=== PATIENT | male | born 1955 | race Caucasian/White ===

== ENCOUNTER 2018-06-28 05:41 | Inpatient (IN) | payer MEDICARE, OTHER ==
[~2018-06-28] VITALS: Ht 182.9 cm; Wt 92.1 kg
[~2018-06-28 05:41] MED LIST: CHLO25A PO; HALO2 PO; LISI5 PO; Prinivil10 MG PO; RISP2 PO; Toprol Xl25 MG PO; Trihexyphenidyl2 MG PO; Ventolin/Prove6.7 GM INH
[2018-06-30] MEDS ORDERED: Percocet 5-3251 EACH PO (11:22)
== END 2018-06-30 12:37 | disposition home or self-care (01) | DRG 352 ==
LOC: ORSCMMR 05:41 → ORD 07:30 → SURS 10:21 → ORSCMMR 10:22 → SURS 10:22
PROVIDERS: Surgery
PROC: 0YU50JZ Supplement Right Inguinal Region with Synthetic Substitute, Open Approach (ICD-10-PCS; principal; 2018-06-28 07:30)
DX: K40.90 Unilateral inguinal hernia, without obstruction or gangrene, not specified as recurrent (principal); F17.210 Nicotine dependence, cigarettes, uncomplicated; F32.9 Major depressive disorder, single episode, unspecified; J44.9 Chronic obstructive pulmonary disease, unspecified; E11.9 Type 2 diabetes mellitus without complications; Z79.4 Long term (current) use of insulin; F20.9 Schizophrenia, unspecified; E66.9 Obesity, unspecified; Z68.31 Body mass index [BMI] 31.0-31.9, adult; E55.9 Vitamin D deficiency, unspecified
CPT/HCPCS: C1781; J0330; J0694; J1100; J1650; J1885; J2001; J2250; J2370; J2405; J2710; J3010; J7120

== ENCOUNTER 2018-11-02 06:57 | Day surgery (SDC) | payer MEDICARE, OTHER ==
[~2018-11-02] VITALS: Ht 182.9 cm; Wt 86.6 kg
[~2018-11-02 06:57] MED LIST changes: +ALBU90OI INH; +Metformin HCl500 MG; +Percocet 5-3251 EACH PO; +Risperdal50 MG/2 ML IM
[2018-11-03] MEDS ORDERED: HYDR1TAB94 PO (14:45)
== END 2018-11-03 15:19 | disposition home or self-care (01) ==
LOC: ORSCMMR 06:57 → ORD 08:30 → SURS 15:10 → ORSCMMR 11-03 15:19
PROVIDERS: Surgery
PROC: 8E0W4CZ Robotic Assisted Procedure of Trunk Region, Percutaneous Endoscopic Approach (ICD-10-PCS; principal; 2018-11-02 08:30)
PROC: 0YUA4JZ Supplement Bilateral Inguinal Region with Synthetic Substitute, Percutaneous Endoscopic Approach (ICD-10-PCS; principal; 2018-11-02 08:30)
DX: K40.21 Bilateral inguinal hernia, without obstruction or gangrene, recurrent (principal); Z23 Encounter for immunization; E11.9 Type 2 diabetes mellitus without complications; F17.210 Nicotine dependence, cigarettes, uncomplicated; J45.909 Unspecified asthma, uncomplicated; Z79.899 Other long term (current) drug therapy
CPT/HCPCS: 49651; S2900; 82947; 90686; C1781; G0008; J0690; J1100; J2250; J2405; J2710; J3010; J7120

== ENCOUNTER 2019-07-28 17:14 | Observation (INO) | payer MEDICARE, OTHER ==
[~2019-07-28] VITALS: Ht 182.9 cm; Wt 89.6 kg
[~2019-07-28 17:14] MED LIST changes: +HYDR1TAB94 PO
[2019-07-28 19:44] LABS: BASOPHILS ABSOLUTE AUTO 0.06 K/mm3 (0.00-0.23); BASOPHILS PERCENT AUTO 0 % (0-2); EOSINOPHILS PERCENT AUTO 0 % (0-6); Hematocrit 42.6 % (37.0-53.0); Hemoglobin 13.9 g/dL (13.5-17.5); IMMATURE GRAN ABSOLUTE AUTO 0.06 K/mm3 (0.00-0.10); IMMATURE GRAN PERCENT AUTO 0 % (0-1); LYMPHOCYTES ABSOLUTE AUTO 0.83 K/mm3 (0.84-5.20); LYMPHOCYTES PERCENT AUTO 5 % (21-46); MONOCYTES ABSOLUTE AUTO 0.77 K/mm3 (0.16-1.47); MONOCYTES PERCENT AUTO 5 % (4-13); Mean Corpuscular HGB 32.7 pg (26.0-34.0); Mean Corpuscular HGB Conc 32.6 g/dL (31.5-36.5); Mean Corpuscular Volume 100 fL (80-100); Mean Platelet Volume 10.2 fL (9.1-12.4); NEUTROPHILS ABSOLUTE AUTO 14.06 K/mm3 (1.96-9.15); NEUTROPHILS PERCENT AUTO 89 % (41-73); Platelet Count 184 K/mm3 (150-400); RDW Coefficient Variation 14.1 % (11.7-14.2); RDW Standard Deviation 52.1 fL (35.1-46.3); Red Blood Cell Count 4.25 M/mm3 (4.30-5.90); White Blood Cell Count 15.78 K/mm3 (4.00-11.30)
[2019-07-28 20:01] LABS: International Normalized Ratio 0.96; Prothrombin Time Results 10.2 Sec (9.7-11.5)
[2019-07-28 20:04] LABS: Salicylate 1.9 mg/dL (2.8-20.0)
[2019-07-28 20:06] LABS: Acetaminophen, Random <2.0 ug/mL (10.0-30.0)
[2019-07-28 20:19] LABS: Alanine Aminotransfer (ALT/SGP 18 U/L (12-78); Albumin, Blood 3.7 g/dL (3.4-5.0); Albumin/Globulin Ratio 0.8 (0.8-1.8); Alk Phos 80 U/L (50-136); Anion Gap 10 mmol/L (6-16); Aspartate Aminotrans (AST/SGOT 16 U/L (12-37); Bilirubin, Total 0.7 mg/dL (0.1-1.0); Blood Urea Nitrogen 8 mg/dL (8-24); CO2, Blood 23 mmol/L (21-32); Calcium, Blood 8.2 mg/dL (8.5-10.1); Chloride, Blood 108 mmol/L (98-108); Creatinine, Blood 0.89 mg/dL (0.60-1.20); Ethanol (Alcohol), Blood, Med 32 mg/dL; Globulin, Blood 4.8 g/dL (2.2-4.0); Glomerular Filtration Rate >60 (60-); Glucose, Blood 107 mg/dL (70-99); Potassium, Blood 3.8 mmol/L (3.5-5.5); Sodium, Blood 141 mmol/L (136-145); Total Protein, Blood 8.5 g/dL (6.4-8.2)
[2019-07-28 20:29] LABS: CPK Creatine Kinase 135 U/L (39-308)
[2019-07-28 20:32] LABS: Creatine Kinase MB <1.0 ng/mL (0.0-3.6); Creatine Kinase MB Index Unable to Calculate (0.0-4.0)
[2019-07-28 21:26] LABS: Source, Urine Clean Catch
[2019-07-28 21:30] LABS: Bilirubin, Urine Neg (Neg); Blood, Urine Neg (Neg); Glucose Qualitative, Urine Neg (Neg); Ketones, Urine 1+ (Neg); Leukocyte Esterase, Urine Neg (Neg); Nitrite, Urine Neg (Neg); Protein, Urine Neg (Neg); Specific Gravity, Urine 1.025 (1.003-1.022); Urobilinogen, Urine NORM (Normal)
[2019-07-28 21:34] LABS: Appearance, Urine Clear (Clear); Color, Urine Yellow (P-Yellow)
[2019-07-28 21:45] LABS: U Amphetamine Screen Not Detected; U Barbituate Screen Not Detected; U Benzodiazapine Screen Not Detected; U Buprenorphine Screen Not Detected; U Cannabinoids Screen DETECTED; U Cocaine Screen Not Detected; U Methadone Screen Not Detected; U Methamphetamine Screen Not Detected; U Opiates Screen Not Detected; U Oxycodone Screen Not Detected; U Phencyclidine Screen Not Detected; U Propoxyphene Screen Not Detected
[2019-07-28] MEDS ORDERED: Risperdal50 MG/2 ML SC (22:26)
[2019-07-28] MEDS ORDERED: Trihexyphenidyl2 MG PO (22:44)
[2019-07-29] MEDS ORDERED: HALO2 PO (03:13)
[2019-07-29] MEDS ORDERED: ALBU90OI INH (03:15)
--- NOTE | 2019-07-29 04:33 | NUR ---
CONSULT: ORTHO CONSULT CALLED TO DR DONALD FOR THE AM.
--- NOTE | 2019-07-29 04:34 | NUR ---
PT HAS BEEN STABLE SINCE ARRIVAL TO FLOOR. HAS SLEPT T/O THIS SHIFT. PT IS SLIGHTLY HYPERTENSIVE, STATES HE TOOK HIS MEDS YESTEDAY PRIOR TO ADMIT. HOME MEDS SCHEDULED FOR AM. PT HAS NOT VOIDED THIS SHIFT. BED ALARM ON FOR SAFETY PT CAME IN AFTER DRINKING ALCOHOL. NPO FOR POSSIBLE SURGERY. SURGICAL PKT ON CHART. ORTHO CONSULT CALLED. CALL LIGHT IN REACH.
--- NOTE | 2019-07-29 13:00 | NUR ---
PT TAKEN TO DAYS SURGERY.
--- NOTE | 2019-07-29 14:12 | NUR ---
History, Chart, Medications and Allergies reviewed before start of procedure. SPOKE TO DR TRAN REGARDING LOW TONE EXP WHEEZE T/O. NO NEW ORDERS. Patient confirms NPO status and agrees with scheduled surgery. MENTIONED FALSE EYE ON LEFT SIDE TO OR STAFF. PT CALM AND COOPERATIVE WITH CARE.
--- NOTE | 2019-07-29 17:54 | NUR ---
POST OP ARRIVED FROM PACU VIA GURNEY, PT TRANSFERRED TO BED, DROWSY BUT AWAKENS EASILY, DENIES ANY PAIN, DIAPHORETIC, COARSE AND WET LUNG SOUNDS ON UPPER LOBES, PT ENCOURAGED TO COUGH AND DEEP BREATHE AND WAS ABLE TO COUGH UP A LARGE AMOUND TO THICK SPUTUM, PT ENCOURAGED TO COUGH AND DEEP BREATHE FREQUENTLY.
--- NOTE | 2019-07-29 18:49 | NUR ---
PT MORE AWAKE, EATING DINNER, DENIES ANY PAIN, DSG C/D/I, NO ACUTE CHANGES THIS SHIFT.
[2019-07-30 04:56] LABS: BASOPHILS ABSOLUTE AUTO 0.02 K/mm3 (0.00-0.23); BASOPHILS PERCENT AUTO 0 % (0-2); EOSINOPHILS PERCENT AUTO 0 % (0-6); Hematocrit 34.1 % (37.0-53.0); Hemoglobin 11.1 g/dL (13.5-17.5); IMMATURE GRAN ABSOLUTE AUTO 0.06 K/mm3 (0.00-0.10); IMMATURE GRAN PERCENT AUTO 0 % (0-1); LYMPHOCYTES ABSOLUTE AUTO 1.07 K/mm3 (0.84-5.20); LYMPHOCYTES PERCENT AUTO 7 % (21-46); MONOCYTES ABSOLUTE AUTO 1.11 K/mm3 (0.16-1.47); MONOCYTES PERCENT AUTO 7 % (4-13); Mean Corpuscular HGB 31.7 pg (26.0-34.0); Mean Corpuscular HGB Conc 32.6 g/dL (31.5-36.5); Mean Platelet Volume 10.3 fL (9.1-12.4); NEUTROPHILS ABSOLUTE AUTO 13.38 K/mm3 (1.96-9.15); NEUTROPHILS PERCENT AUTO 86 % (41-73); Platelet Count 151 K/mm3 (150-400); RDW Coefficient Variation 13.9 % (11.7-14.2); RDW Standard Deviation 49.5 fL (35.1-46.3); White Blood Cell Count 15.64 K/mm3 (4.00-11.30)
[2019-07-30 04:57] LABS: Mean Corpuscular Volume 97 fL (80-100)
[2019-07-30 05:15] LABS: Albumin, Blood 2.9 g/dL (3.4-5.0); Anion Gap 6 mmol/L (6-16); Blood Urea Nitrogen 13 mg/dL (8-24); CO2, Blood 27 mmol/L (21-32); Chloride, Blood 107 mmol/L (98-108); Creatinine, Blood 0.81 mg/dL (0.60-1.20); Glomerular Filtration Rate >60 (60-); Glucose, Blood 118 mg/dL (70-99); Phosphorus, Blood 2.5 mg/dL (2.5-4.9); Potassium, Blood 4.2 mmol/L (3.5-5.5); Sodium, Blood 140 mmol/L (136-145)
--- NOTE | 2019-07-30 05:35 | NUR ---
SHIFT SUMMARY: PT IS ALERT AND ORIENTED WITH SOME DEGREE OF CONFUSION. PT IS CALM AND COOPERATIVE WITH CARE. PT USING HIS CALL LIGHT PART OF THE TIME SET OF ALARMS OTHER TIMES. PT IS A STANDBY ASSIST UP TO THE BATHROOM. PT SLEPT MUCH OF THE NIGHT WHEN NOT DISTURBED. NON-WEIGHT BEARING ON L. ARM ORDERED. PT DENIES PAIN, NAUSEA, VOMITING, AND SOB. NO ACUTE CHANGES OR COMPLICATIONS THIS SHIFT. BED IN LOW POSITION, CALL LIGHT WITHIN REACH. WILL REPORT TO DAY NURSE.
--- NOTE | 2019-07-30 13:51 | NUR ---
DR DONALD AT BEDSIDE, NOTIFIED OF REDNESS UNDER SURGICAL SITE. PER DR DONALD, PT CLEARED TO GO HOME, WILL SEE BACK IN TWO WEEKS AND DRESSING CHANGE IN [address] MANZO.
--- NOTE | 2019-07-30 16:47 | NUR ---
SHIFT SUMMARY PT A&Ox3, CONFUSED AT TIMES. THIS AFTERNOON PT WAS YELLING OUT "GET OUT OF HERE", THIS RN TO ROOM, NO ONE WAS IN ROOM AND WHEN ASKED PT STATES HIS FRIEND IS IN THE SHADOWS, NOTIFIED DR MANZO, NEW ORDERS FOR HALDOL, ADMINISTERED PER EMAR. ON REASSESSMENT PT STATES HIS FRIEND SEEMS TO HAVE GONE HOME. PT DENIES PAIN, SOB AND NASUEA. REDNESS NOTED ON LEFT UPPER ARM, NOTIFIED DR CRAWFORD AND DR DONALD, NO NEW ORDERS. PT NON COMPLIANT WITH WEIGHT BEARING STATUS AND EDUCATED PT TO NO USE THAT ARE AND TO USE CALL LIGHT, CONTINUES TO SET OFF ALARMS. PT RECEIVIED IV ANTIBIOTIC THIS AM. VSS. NO OTHER ACUTE CHANGES NOTED DURING SHIFT. WILL CONTINUE TO MONITOR.
[2019-07-31 04:05] LABS: BASOPHILS ABSOLUTE AUTO 0.06 K/mm3 (0.00-0.23); BASOPHILS PERCENT AUTO 1 % (0-2); EOSINOPHILS ABSOLUTE AUTO 0.02 K/mm3 (0.00-0.68); EOSINOPHILS PERCENT AUTO 0 % (0-6); Hemoglobin 10.4 g/dL (13.5-17.5); IMMATURE GRAN ABSOLUTE AUTO 0.04 K/mm3 (0.00-0.10); IMMATURE GRAN PERCENT AUTO 0 % (0-1); LYMPHOCYTES ABSOLUTE AUTO 3.25 K/mm3 (0.84-5.20); LYMPHOCYTES PERCENT AUTO 27 % (21-46); MONOCYTES ABSOLUTE AUTO 1.06 K/mm3 (0.16-1.47); MONOCYTES PERCENT AUTO 9 % (4-13); Mean Corpuscular HGB 32.7 pg (26.0-34.0); Mean Corpuscular HGB Conc 32.5 g/dL (31.5-36.5); Mean Platelet Volume 10.4 fL (9.1-12.4); NEUTROPHILS ABSOLUTE AUTO 7.54 K/mm3 (1.96-9.15); NEUTROPHILS PERCENT AUTO 63 % (41-73); Platelet Count 153 K/mm3 (150-400); RDW Coefficient Variation 14.4 % (11.7-14.2); RDW Standard Deviation 52.5 fL (35.1-46.3); Red Blood Cell Count 3.18 M/mm3 (4.30-5.90); White Blood Cell Count 11.97 K/mm3 (4.00-11.30)
[2019-07-31 04:09] LABS: Mean Corpuscular Volume 101 fL (80-100)
--- NOTE | 2019-07-31 06:49 | NUR ---
SUMMARY: POD [address] DONALD ALSO FOLLOWED BY HOSPITALIST. VSS, AFEBRILE, ROOM AIR. STEADY ON FEET, VOIDING AND TOLERATING REG DIET WELL, PASSING GAS AND GIVEN PRN SENNA FOR BOWEL CARE. PT CALLS APPROPRIATELY AND DENIES HALLUCINATIONS. ANTICIPATE DC HOME LATER THIS DAY.
[2019-07-31] MEDS ORDERED: HYDR1TAB94 PO (10:43)
--- NOTE | 2019-07-31 12:12 | NUR ---
DISCHARGE PT DISCHARGED HOME FROM UNIT AT APROX 1145. PT GIVEN WRITTEN AND VERBAL DISCHARGE INSTRUCTIONS AND VERBALIZED UNDERSTANDING OF THESE INSTRUCTIONS. WRITTEN RX FOR CANE AND NORCO GIVEN TO PT, COPY IN CHART. [facility] CALLED FOR TRANSPORT.
--- NOTE | 2019-08-01 14:46 | NUR ---
08/01/19 1445 Marjorie Levy VERIFICATIONS: EDIT IMPLANTS.
== END 2019-07-31 11:47 | disposition home or self-care (01) ==
LOC: ER 17:14 → SURS 17:15
PROVIDERS: Emergency Medicine; Family Medicine; Orthopaedic Surgery; Physician Assistant; ADMIT Hospitalist
PROC: 0PSD04Z Reposition Left Humeral Head with Internal Fixation Device, Open Approach (ICD-10-PCS; principal; 2019-07-29 15:30)
DX: S42.292A Other displaced fracture of upper end of left humerus, initial encounter for closed fracture (principal); E11.9 Type 2 diabetes mellitus without complications; I10 Essential (primary) hypertension; F20.9 Schizophrenia, unspecified; D72.829 Elevated white blood cell count, unspecified; J44.9 Chronic obstructive pulmonary disease, unspecified; K40.90 Unilateral inguinal hernia, without obstruction or gangrene, not specified as recurrent; Z87.891 Personal history of nicotine dependence; Z79.899 Other long term (current) drug therapy; Z90.01 Acquired absence of eye; W19.XXXA Unspecified fall, initial encounter
CPT/HCPCS: 36415; 70450; 72125; 73030; 73200; 76377; 80053; 80069; 81003; 82140; 82550; 82553; 82947; 85025; 85610; 93005; 93010; 96365; 96376; 97110; 97116; 97161; 97166; 97530; 97535; 99285-25; A9270; C1713; G0378; G0480; J0690; J1100; J1885; J2250; J2370; J2405; J2704; J3010; J7120

== ENCOUNTER 2020-05-10 10:42 | Emergency (ER) | payer MEDICARE, OTHER ==
[~2020-05-10] VITALS: Ht 180.3 cm; Wt 90.7 kg
[~2020-05-10 10:42] MED LIST changes: +Risperdal50 MG/2 ML SC
[2020-05-10 11:22] LABS: Alanine Aminotransfer (ALT/SGP 16 U/L (12-78); Albumin, Blood 3.1 g/dL (3.4-5.0); Albumin/Globulin Ratio 0.7 (0.8-1.8); Alk Phos 99 U/L (50-136); Anion Gap 10 mmol/L (6-16); Aspartate Aminotrans (AST/SGOT 31 U/L (12-37); Bilirubin, Total 0.8 mg/dL (0.1-1.0); Blood Urea Nitrogen 10 mg/dL (8-24); CO2, Blood 21 mmol/L (21-32); Calcium, Blood 7.4 mg/dL (8.5-10.1); Chloride, Blood 106 mmol/L (98-108); Creatinine, Blood 0.71 mg/dL (0.60-1.20); Ethanol (Alcohol), Blood, Med 176 mg/dL; Globulin, Blood 4.4 g/dL (2.2-4.0); Glomerular Filtration Rate >60 (60-); Glucose, Blood 120 mg/dL (70-99); Potassium, Blood 4.9 mmol/L (3.5-5.5); Sodium, Blood 137 mmol/L (136-145); Total Protein, Blood 7.5 g/dL (6.4-8.2)
[2020-05-10 11:38] LABS: BASOPHILS ABSOLUTE AUTO 0.08 K/mm3 (0.00-0.23); BASOPHILS PERCENT AUTO 1 % (0-2); EOSINOPHILS ABSOLUTE AUTO 0.02 K/mm3 (0.00-0.68); EOSINOPHILS PERCENT AUTO 0 % (0-6); Hematocrit 40.3 % (37.0-53.0); IMMATURE GRAN ABSOLUTE AUTO 0.02 K/mm3 (0.00-0.10); IMMATURE GRAN PERCENT AUTO 0 % (0-1); LYMPHOCYTES ABSOLUTE AUTO 1.15 K/mm3 (0.84-5.20); LYMPHOCYTES PERCENT AUTO 13 % (21-46); MONOCYTES ABSOLUTE AUTO 0.44 K/mm3 (0.16-1.47); MONOCYTES PERCENT AUTO 5 % (4-13); Mean Corpuscular HGB 32.3 pg (26.0-34.0); Mean Corpuscular HGB Conc 32.3 g/dL (31.5-36.5); Mean Corpuscular Volume 100 fL (80-100); Mean Platelet Volume 9.9 fL (9.1-12.4); NEUTROPHILS ABSOLUTE AUTO 7.26 K/mm3 (1.96-9.15); NEUTROPHILS PERCENT AUTO 81 % (41-73); Platelet Count 176 K/mm3 (150-400); RDW Coefficient Variation 13.4 % (11.7-14.2); RDW Standard Deviation 49.2 fL (35.1-46.3); Red Blood Cell Count 4.03 M/mm3 (4.30-5.90); White Blood Cell Count 8.97 K/mm3 (4.00-11.30)
== END 2020-05-10 15:42 | disposition home or self-care (01) ==
LOC: ER 10:42
PROVIDERS: Emergency Medicine
DX: F10.129 Alcohol abuse with intoxication, unspecified (principal); Z79.899 Other long term (current) drug therapy; I10 Essential (primary) hypertension; F20.9 Schizophrenia, unspecified; Z87.891 Personal history of nicotine dependence
CPT/HCPCS: 36415; 70450; 72125; 80053; 85025; 93005; 93010; 99284-25; G0480

== ENCOUNTER 2021-01-06 11:10 | Day surgery (SDC) | payer MEDICARE, OTHER ==
[~2021-01-06] VITALS: Ht 180.3 cm; Wt 86.5 kg
[~2021-01-06 11:10] MED LIST changes: +LATA.005SO BOTHEYES; +MIRALAX17 GM PO; +RISPERDAL IM; -Risperdal50 MG/2 ML SC
[2021-01-06 11:13] LABS: BASOPHILS ABSOLUTE AUTO 0.06 K/mm3 (0.00-0.23); BASOPHILS PERCENT AUTO 1 % (0-2); EOSINOPHILS ABSOLUTE AUTO 0.02 K/mm3 (0.00-0.68); EOSINOPHILS PERCENT AUTO 0 % (0-6); Hematocrit 39.2 % (37.0-53.0); Hemoglobin 12.7 g/dL (13.5-17.5); IMMATURE GRAN ABSOLUTE AUTO 0.02 K/mm3 (0.00-0.10); IMMATURE GRAN PERCENT AUTO 0 % (0-1); LYMPHOCYTES PERCENT AUTO 19 % (21-46); MONOCYTES ABSOLUTE AUTO 0.67 K/mm3 (0.16-1.47); MONOCYTES PERCENT AUTO 7 % (4-13); Mean Corpuscular HGB 32.3 pg (26.0-34.0); Mean Corpuscular HGB Conc 32.4 g/dL (31.5-36.5); Mean Corpuscular Volume 100 fL (80-100); Mean Platelet Volume 10.4 fL (9.1-12.4); NEUTROPHILS ABSOLUTE AUTO 6.87 K/mm3 (1.96-9.15); NEUTROPHILS PERCENT AUTO 73 % (41-73); Platelet Count 204 K/mm3 (150-400); RDW Coefficient Variation 13.2 % (11.7-14.2); RDW Standard Deviation 48.5 fL (35.1-46.3); Red Blood Cell Count 3.93 M/mm3 (4.30-5.90); White Blood Cell Count 9.44 K/mm3 (4.00-11.30)
--- NOTE | 2021-01-06 11:39 | NUR ---
PT WAS TRANSFERED FROM THE ER WAITING AREA TO [facility] VIA AMBULATION. ER HAD PLACED A 20 GAUGE IV IN THE PT'S LEFT HAND. IV WNL AND FLOWING TO GRAVITY. Ambulatory in Day Surgery History, Chart, Medications and Allergies reviewed before start of procedure. Lungs clear T/O to Auscultation. Patient confirms NPO status and agrees with scheduled surgery. Patient States Post-Procedure ride home has been arranged.
--- NOTE | 2021-01-06 11:58 | NUR ---
01/06/21 1158 Karo Soriano History, Chart, Medications and Allergies reviewed before start of procedure. Patient confirms NPO status and agrees with scheduled surgery. PATIENT DETERMINED TO BE ASA APPROPRIATE FOR PROPOFOL SEDATION PRIOR TO START OF PROCEDURE BY . 3-LEAD EKG REVIEWED WITH PHYSICIAN PRIOR TO START OF PROCEDURE. MONITOR INTACT WITH CONTINUOUS PULSE OXIMETRY AND INTERMITTENT BP.Bite Block Placed.
--- NOTE | 2021-01-06 13:04 | NUR ---
PATIENT DECLINES SOMETHING TO DRINK. ALERT AND TALKING. BREATHING RA. DENIES C/O. WILL TRANSFER HOME WHEN HIS [facility] IS AVAILABLE.
--- NOTE | 2021-01-06 13:17 | NUR ---
SPOKE TO CHRISTA, PATIENT'S CAREGIVER, AND GAVE HER DISCHARGE INSTRUCTIONS, INCLUDING NEW PRESCRIPTION INFORMATION. Discharge instructions reviewed with patient. Patient verbalizes understanding. Copy given to patient to take home. Patient States Post-Procedure ride home has been arranged with [facility]. VSS. Patient declines driking anything and wants to wait until he can drink Diet Coke at home. Gait Steady. Up to dress.
== END 2021-01-06 13:30 | disposition home or self-care (01) ==
LOC: ORSCMMR 11:10
PROVIDERS: Internal Medicine Gastroenterology; Physician Assistant
PROC: 0DB98ZX Excision of Duodenum, Via Natural or Artificial Opening Endoscopic, Diagnostic (ICD-10-PCS; principal; 2021-01-06 11:00)
PROC: 0DJD8ZZ Inspection of Lower Intestinal Tract, Via Natural or Artificial Opening Endoscopic (ICD-10-PCS; principal; 2021-01-06 11:00)
PROC: 0DB78ZX Excision of Stomach, Pylorus, Via Natural or Artificial Opening Endoscopic, Diagnostic (ICD-10-PCS; principal; 2021-01-06 11:00)
DX: D46.4 Refractory anemia, unspecified (principal); K29.80 Duodenitis without bleeding; K29.70 Gastritis, unspecified, without bleeding; B96.81 Helicobacter pylori [H. pylori] as the cause of diseases classified elsewhere; K44.9 Diaphragmatic hernia without obstruction or gangrene; F20.9 Schizophrenia, unspecified; Z79.899 Other long term (current) drug therapy; Z87.891 Personal history of nicotine dependence
CPT/HCPCS: 85025; 88305; 88342; A9270; J2704; J7120